=== PATIENT | female | born 1950 | race Two or more races ===

== ENCOUNTER 2019-11-15 10:56 | Emergency (ER) | payer MEDICAID, MEDICARE, SELFPAY ==
[~2019-11-15] VITALS: Ht 160 cm; Wt 67.0 kg
--- NOTE | 2019-11-15 11:18 | NUR ---
C/O CP radiating to left arm x 2 hours. Anxious. Hx DM and hyperlipidemia. VSS. Daughter at bedside. Will continue to monitor.
[2019-11-15] MEDS ORDERED: ASPIRIN 81 MG TABLET CHEW ONE (11:26)
[2019-11-15] MEDS ORDERED: ASPIRIN 81 MG TABLET CHEW PO ONE (11:30)
[2019-11-15] MEDS ORDERED: NITROGLYCERIN SINGLE TAB 0.4 MG SL ONE (11:41)
[2019-11-15 11:57] LABS: BASOPHILS # (AUTO) 0.03 x10^3/uL (0-0.1); BASOPHILS % (AUTO) 0 % (0-1); EOSINOPHILS # (AUTO) 0.08 x10^3/uL (0-0.4); EOSINOPHILS % (AUTO) 1 % (1-7); LYMPHOCYTES # (AUTO) 3.06 x10^3/uL (1-3.4); LYMPHOCYTES % (AUTO) 37 % (22-44); MD NO; MEAN CORPUSCULAR HEMOGLOBIN 30.8 pg (27.0-34.8); MEAN CORPUSCULAR HGB CONC 33.1 g/dL (32.4-35.8); MEAN PLATELET VOLUME 8.5 fL (7.4-10.4); MONOCYTES # (AUTO) 0.49 x10^3/uL (0.2-0.8); MONOCYTES % (AUTO) 6 % (2-9); NEUTROPHILS # (AUTO) 4.72 x10^3/uL (1.8-6.8); NEUTROPHILS % (AUTO) 56 % (42-75); PLATELET COUNT 230 x10^3/uL (130-400); RED BLOOD COUNT 4.45 x10^6/uL (3.82-5.3); RED CELL DISTRIBUTION WIDTH 13.1 % (9.6-15.2)
--- NOTE | 2019-11-15 11:58 | NUR ---
CP remains at a 7/10 after nitor x1. VSS. MD Minh states to hold nitro. No other needs.
[2019-11-15] MEDS ORDERED: NITROGLYCERIN SINGLE TAB 0.4 MG SL PRN (12:00)
[2019-11-15 12:05] LABS: CHLORIDE 107 mmol/L (98-107)
[2019-11-15 12:19] LABS: ALANINE AMINOTRANSFERASE 22 U/L (12-78); ALBUMIN 3.7 g/dL (3.4-5.0); ALKALINE PHOSPHATASE 80 U/L (45-117); ANION GAP 10 mmol/L (5-15); CALCIUM 8.7 mg/dL (8.5-10.1); CREATININE 0.68 mg/dL (0.55-1.02); TOTAL PROTEIN 7.2 g/dL (6.4-8.2); TROPONIN I < 0.015 ng/mL (0.000-0.045)
[2019-11-15] MEDS ORDERED: METF500T17 PO (12:23)
[2019-11-15] MEDS ORDERED: ATOR40TA78 PO (12:23)
[2019-11-15] MEDS ORDERED: OMEP-110 PO (12:23)
[2019-11-15] MEDS ORDERED: SODIUM CHLORIDE FLUSH 10ML SYR IVF PRN (13:30)
--- NOTE | 2019-11-15 13:55 | NUR ---
REGINALD at bedside. Plan is for repeat EKG and trop at 1500 and 23 hours obs.
[2019-11-15] MEDS ORDERED: ONDANSETRON 2MG/ML, 2ML IVPush PRN (14:00)
[2019-11-15] MEDS ORDERED: ACETAMINOPHEN 325 MG TABLET PO PRN (14:00)
[2019-11-15] MEDS ORDERED: ONDANSETRON ODT 4 MG PO PRN (14:00)
--- NOTE | 2019-11-15 14:32 | NUR ---
Patient resting in [facility]. NAD. No needs.
[2019-11-15 14:50] LABS: TROPONIN I < 0.015 ng/mL (0.000-0.045)
[2019-11-15] MEDS ORDERED: ASPI81TA45 PO (15:15)
--- NOTE | 2019-11-15 15:20 | NUR ---
Per Bill, throughput RN, patient is to be discharged by hospitalist from ER.
[2019-11-15] MEDS ORDERED: POTASSIUM CHLORIDE 20 MEQ TAB.ER.PRT PO ONE (15:30)
[2019-11-15 15:35] VITALS: BP 155/71
--- NOTE | 2019-11-15 15:57 | NUR ---
Patient up to commode in room without assistance.
--- NOTE | 2019-11-15 16:55 | NUR ---
PATIENT RESTING ON GURNEY, RESPIRATIONS EVEN AND UNLABORED, VSS, NADN. FAMILY IN ROOM. SPOKE WITH THROUGHPUT RN FOR ETA OF HOSPITALIST DC FROM ER
--- NOTE | 2019-11-15 17:05 | NUR ---
SPOKE WITH THROUGHPUT RN, WHO CALLED HOSPITALIST. HOSPITALIST HAS PUT DC ORDERS IN, DISCHARGE LOUNGE WILL SEND OVER PACKET OF WHAT NEEDS TO BE PRINTED AND PATIENT WILL BE DISCHARGED FROM ED
--- NOTE | 2019-11-15 17:26 | NUR ---
project leader to bring down paperwork
--- NOTE | 2019-11-15 17:39 | NUR ---
Discharge paperwork explained to patient and daughter, verbalized understanding of follow up appt with PCP, cardiac nulcear scan, and cardiology. Daughter and patient verbalized understanding of these topics as well as diet changes, taking BP at home, activity restrictions, and signs of when to return to ER. Patient ambulatory in room with steady gait, would like to walk to discharge.
== END 2019-11-15 17:59 | disposition home or self-care (01) ==
LOC: ED 14:07 → EDIP 15:27 → UNDOADMIN 15:27 → ED 17:59
DX: R07.89 Other chest pain (principal); M79.622 Pain in left upper arm; K21.9 Gastro-esophageal reflux disease without esophagitis; E78.00 Pure hypercholesterolemia, unspecified; E11.9 Type 2 diabetes mellitus without complications
CPT/HCPCS: 36415; 71045; 80053; 84484; 85025; 85379; 93005; 99285

== ENCOUNTER 2020-09-15 05:59 | Day surgery (SDC) | payer MEDICARE, MEDICAID ==
[~2020-09-15] VITALS: Ht 152.4 cm; Wt 66.6 kg
[~2020-09-15 05:59] MED LIST: ASPI81TA45 PO; ATOR40TA78 PO; METF500T17 PO; OMEP-110 PO
[2020-09-15] MEDS ORDERED: multivitamin PO (06:49)
[2020-09-15 06:50] VITALS: BP 148/86
[2020-09-15] MEDS ORDERED: LACTATED RINGERS 1,000 ML IV SCH (07:00)
[2020-09-15] MEDS ORDERED: CHLORHEXIDINE 15 ML UDC PO ONE (07:00)
[2020-09-15] MEDS ORDERED: LIDOCAINE-MPF 2% ,5ML ONE (07:33)
[2020-09-15] MEDS ORDERED: GLYCOPYRROLATE 0.2MG/1ML, 5ML ONE (07:34)
[2020-09-15 07:40] LABS: ALANINE AMINOTRANSFERASE 25 U/L (12-78); ALBUMIN 3.6 g/dL (3.4-5.0); CALCIUM 8.2 mg/dL (8.5-10.1)
[2020-09-15] MEDS ORDERED: PROPOFOL 10 MG/ML, 20ML ONE (07:40)
[2020-09-15 07:42] LABS: ALKALINE PHOSPHATASE 79 U/L (45-117); BILIRUBIN,TOTAL 0.5 mg/dL (0.2-1.0); TOTAL PROTEIN 6.9 g/dL (6.4-8.2)
[2020-09-15 07:47] LABS: ANION GAP 4 mmol/L (5-15); CHLORIDE 109 mmol/L (98-107)
[2020-09-15] MEDS ORDERED: FENTANYL PF 100 MCG/2ML IV PRN (08:00)
[2020-09-15] MEDS ORDERED: MEPERIDINE/PF 25MG/0.5ML IVPush PRN (08:00)
[2020-09-15] MEDS ORDERED: ACETAMINOPHEN 325 MG TABLET PO PRN (08:00)
[2020-09-15] MEDS ORDERED: OXYcodone 5 MG/5 ML ORAL.SOL UDC PO PRN (08:00)
[2020-09-15] MEDS ORDERED: PROMETHAZINE 25 MG/ML, 1ML IVPush PRN (08:00)
[2020-09-15] MEDS ORDERED: LABETALOL 5MG/ML, 20ML IV PRN (08:00)
[2020-09-15] MEDS ORDERED: hydrALAzine 20 MG/ML, 1ML IV PRN (08:00)
[2020-09-15] MEDS ORDERED: METOPROLOL 1 MG/ML, 5ML IV PRN (08:00)
[2020-09-15] MEDS ORDERED: METHOCARBAMOL 1,000 MG in DEXTROSE 5% 100 ML IV PRN (08:00)
[2020-09-15] MEDS ORDERED: PROMETHAZINE 25 MG SUPP PR PRN (08:00)
[2020-09-15] MEDS ORDERED: ONDANSETRON 2MG/ML, 2ML IVPush PRN (08:00)
[2020-09-15] MEDS ORDERED: LORazepam 2 MG/ML, 1ML IVPush PRN (08:00)
== END 2020-09-15 09:16 | disposition home or self-care (01) ==
LOC: OUT 05:59
PROVIDERS: ATTEND Internal Medicine Geriatric Medicine
DX: K31.7 Polyp of stomach and duodenum (principal); K21.9 Gastro-esophageal reflux disease without esophagitis; I10 Essential (primary) hypertension; E11.9 Type 2 diabetes mellitus without complications; Z20.822 Contact with and (suspected) exposure to COVID-19; Z79.899 Other long term (current) drug therapy; Z88.0 Allergy status to penicillin
CPT/HCPCS: 43251; 43259; 80053; 82962; 87635; 88305; 93005; J7120; J2704